=== PATIENT | male | born 1985 | race Caucasian/White ===

== ENCOUNTER 2019-02-21 01:49 | Emergency (ER) | payer SELFPAY ==
[~2019-02-21] VITALS: Ht 188 cm; Wt 110.0 kg
[2019-02-21 01:59] VITALS: BP 132/88
== END 2019-02-21 02:10 ==
LOC: ER 01:50
DX: F10.129 Alcohol abuse with intoxication, unspecified (principal); F19.10 Other psychoactive substance abuse, uncomplicated; Z02.89 Encounter for other administrative examinations; V87.7XXA Person injured in collision between other specified motor vehicles (traffic), initial encounter; Y93.89 Activity, other specified; Y92.89 Other specified places as the place of occurrence of the external cause; Y99.8 Other external cause status; Y90.9 Presence of alcohol in blood, level not specified
CPT/HCPCS: 99283

== ENCOUNTER 2021-11-15 11:08 | Emergency (ER) | payer MEDICAID ==
[~2021-11-15] VITALS: Ht 182.9 cm; Wt 84.1 kg
[2021-11-15] MEDS ORDERED: TETanus/Pertussis (Acell)/Diphther VAC/PF (Tdap-Adult) 0.5ml syringe IMVAC ONE (11:20)
--- NOTE | 2021-11-15 11:50 | NUR ---
WOUND CLEANED BY [employer] GONSALVES
--- NOTE | 2021-11-15 12:02 | NUR ---
XRAY AT BEDSIDE
[2021-11-15] MEDS ORDERED: AMOX-422 PO (12:43)
--- NOTE | 2021-11-15 13:02 | NUR ---
WOUND WRAPPED BY G[employer] GONSALVES
[2021-11-15 13:03] VITALS: BP 138/71
== END 2021-11-15 13:05 ==
LOC: ER 11:08
DX: S51.831A Puncture wound without foreign body of right forearm, initial encounter (principal); M25.541 Pain in joints of right hand; Z20.3 Contact with and (suspected) exposure to rabies; W54.0XXA Bitten by dog, initial encounter; Y93.89 Activity, other specified; Y92.89 Other specified places as the place of occurrence of the external cause; Y99.8 Other external cause status
CPT/HCPCS: 73090; 90471; 90715; 99283